=== PATIENT | female | born 1945 | race Caucasian/White ===

== ENCOUNTER 2016-05-01 17:23 | Emergency (ER) | payer MEDICARE ==
[2016-05-01 17:45] VITALS: TEMP 98.6; BMI 21.6
--- NOTE | 2016-05-01 18:16 | ED PDOC ---
Arrival/HPI <Maksim rBand DO - Last Filed: 05/01/16 19:10> - History of Present Illness Time/Duration: Prior to Arrival, < week Symptom Onset: Gradual Symptom Course: Intermittent <Raymond Gallardo - Last Filed: 05/01/16 20:32> - General Chief Complaint: Palpitations Time Seen by Provider: 05/01/16 17:48 - History of Present Illness Narrative History of Present Illness (Text): 05/01/16 18:02 This is a 71 year old female with a PMH notable for HTN and breast Ca presenting to the ED with complaint of palpitations and hearing "boom boom" in her ears. The patient states that she had a hearing evaluation recently that returned normal results. The patient states that she gets palpitation then hears the "boom boom" in her ear. She reports this sensation since Tuesday. The patient reports left sided shoulder pain since last night as well. The patient denies fever, chills, headache, chest pain, shortness of breath, diaphoresis, and changes in bowel/bladder. PMH: Breast cancer, HTN Surg: Breast surg (13 years ago) Allergy: Aspirin Soc: Denies Tobacco/Illicit Drugs, occasional EtOH (Raymond Gallardo) Past Medical History <Maksim Brand DO - Last Filed: 05/01/16 19:10> - Provider Review Nursing Documentation Reviewed: Yes - Travel History Have you recently traveled outside [place] w/in the past 3 mons?: No - Infectious Disease Hx of Infectious Diseases: None - Reproductive Menopause: Yes - Cardiac Hx Hypertension: Yes - Pulmonary Hx Respiratory Disorders: No - Neurological Hx Neurological Disorder: No - HEENT Other/Comment: Pt reports "Boom Boom" sound in both ears x 2 weeks - Renal Hx Renal Disorder: No - Endocrine/Metabolic Hx Endocrine Disorders: No - Hematological/Oncological Hx Blood Disorders: No - Integumentary Hx Dermatological Disorder: No - Musculoskeletal/Rheumatological Hx Musculoskeletal Disorders: No - Gastrointestinal Hx Gastrointestinal Disorders: No - Genitourinary/Gynecological Hx Genitourinary Disorders: No - Psychiatric Hx Psychophysiologic Disorder: No Hx Substance Use: No - Anesthesia Hx Anesthesia: No Hx Anesthesia Reactions: No Hx Malignant Hyperthermia: No <Raymond Gallardo - Last Filed: 05/01/16 20:32> - Patient History Narrative Patient History: HTN, breast ca (Raymond Gallardo) Family/Social History - Physician Review Nursing Documentation Reviewed: Yes Family/Social History: No Known Family HX Smoking Status: Never Smoked Hx Alcohol Use: Yes Frequency of alcohol use: Socially Hx Substance Use: No <Raymond Gallardo - Last Filed: 05/01/16 20:32> Allergies/Home Meds <Maksim Brand DO - Last Filed: 05/01/16 19:10> <Raymond Gallardo - Last Filed: 05/01/16 20:32> Allergies/Adverse Reactions: Allergies aspirin Adverse Reaction (Verified 05/01/16 17:30) NAUSEA Home Medications: Home Meds Medication Instructions Recorded Confirmed hydroCHLOROthiazide [Hydrodiuril] 25 mg PO DAILY 05/01/16 05/01/16 Review of Systems - Physician Review All systems were reviewed & negative as marked: Yes - Review of Systems Constitutional: absent: Fatigue Eyes: absent: Vision Changes ENT: absent: Hearing Changes Respiratory: absent: SOB, Cough Cardiovascular: Palpitations. absent: Chest Pain, CAMPUZANO, Syncope Gastrointestinal: absent: Abdominal Pain, Nausea, Vomiting Genitourinary Female: absent: Dysuria, Frequency Musculoskeletal: Neck Pain. absent: Arthralgias, Back Pain Skin: absent: Rash Neurological: absent: Headache, Dizziness Endocrine: absent: Diaphoresis <Raymond Gallardo - Last Filed: 05/01/16 20:32> Physical Exam Vital Signs Reviewed: Yes Temperature: Afebrile Blood Pressure: Normal Pulse: Regular Respiratory Rate: Normal Appearance: Positive for: Well-Appearing, Non-Toxic, Comfortable Pain Distress: None Mental Status: Positive for: Alert and Oriented X 3 - Systems Exam Head: Present: Atraumatic, Normocephalic Pupils: Present: PERRL Extroacular Muscles: Present: EOMI Conjunctiva: Present: Normal Ears: Present: Normal, NORMAL TM, Normal Canal. No: Erythema, TM Bulging, Fluid , TM Perf Mouth: Present: Moist Mucous Membranes Pharnyx: Present: Normal. No: ERYTHEMA Neck: Present: Normal Range of Motion Respiratory/Chest: Present: Clear to Auscultation, Good Air Exchange. No: Respiratory Distress, Accessory Muscle Use Cardiovascular: Present: Normal S1, S2, Bradycardic. No: Regular Rate and Rhythm, Murmurs Abdomen: Present: Normal Bowel Sounds. No: Tenderness, Distention, Peritoneal Signs Upper Extremity: Present: Normal Inspection. No: Cyanosis, Edema Lower Extremity: Present: Normal Inspection. No: Edema Neurological: Present: GCS=15, CN II-XII Intact, Speech Normal Skin: Present: Warm, Dry, Normal Color. No: Rashes Psychiatric: Present: Alert, Oriented x 3 <Raymond Gallardo - Last Filed: 05/01/16 20:32> Vital Signs Temp Pulse Resp BP Pulse Ox 05/01/16 19:20 56 L 16 171/90 H 99 05/01/16 17:46 98.6 F 63 18 174/95 H 97 05/01/16 17:33 98.6 F 63 16 174/95 H 100 Medical Decision Making <Maksim Brand DO - Last Filed: 05/01/16 19:10> Re-evaluation Time: 20:00 - Lab Interpretations Interpretation: Abnormal lab values (Hypokalemia. All other CMP and CBC values within normal limits) - EKG Interpretation Interpreted by ED Physician: Yes Type: 12 lead EKG <Raymond Gallardo - Last Filed: 05/01/16 20:32> ED Course and Treatment: 05/01/16 19:11 71 year old complaining of palpations and hearing a thumping sound in her ears. In agreement with resident note, which includes further HPI details. Patient was seen and evaluated with resident, came up with plan and treatment together. Physical exam was unremarkable. (Maksim Brand DO) 05/01/16 18:25 Impression: This is a 71 year old female with a PMH notable for HTN and breast Ca presenting to the ED with complaint of palpitations and hearing "boom boom" in her ears. The "boom boom" may possibly be her heart beat. The patient is in no acute distress. Bedside EKG reveals no abnormalities. Differential: Palpitations HTN Anxiety Cardiac Ischemia Plan: Cardiac Work-up: EKG, BNP, Troponin, CK CBC, CMP, Mag, Phos, TSH Prior Visits: Progress Note: Patient seen and examined at the bedside. No acute distress. Patient asymptomatic presently. EKG negative for acute ST or T wave changes. The patient will undergo cardiac workup to rule out cardiac pathology. 05/01/16 20:28 Patient re-examined. Asymptomatic currently. Laboratory revealed slightly low potassium. K-Dur 20meq ordered. Discharge plan discussed with family. Family was instructed to follow up with PMD for further evaluation if symptoms persist. The patient is agreeable for discharge. The patient is medically safe for discharge home. (Raymond Gallardo) - Lab Interpretations Lab Results: 05/01/16 19:25 05/01/16 19:25 Lab Results 05/01/16 19:25: WBC 5.9, RBC 4.68, Hgb 15.1, Hct 44.4, MCV 94.9, MCH 32.3, MCHC 34.0, RDW 13.5, Plt Count 230, MPV 12.8 H, Gran % 60.3, Lymph % (Auto) 27.3, Addison % (Auto) 9.3 H, Eos % (Auto) 2.4, Baso % (Auto) 0.7, Gran # 3.58, Lymph # 1.6, Addison # 0.6, Eos # 0.1, Baso # 0.04, Sodium 141, Potassium 3.4 L, Chloride 98, Carbon Dioxide 32, Anion Gap 14, BUN 13, Creatinine 0.6, Est GFR ( Amer) > 60, Est GFR (Non-Af Amer) > 60, Random Glucose 103, Calcium 9.7, Phosphorus 3.3, Magnesium 2.1, Total Bilirubin 0.7, AST 39, ALT 31, Alkaline Phosphatase 135 H, Total Creatine Kinase 77, Troponin I < 0.01, NT-Pro-B Natriuret Pep 191, Total Protein 8.8 H, Albumin 4.4, Globulin 4.4, Albumin/ Globulin Ratio 1.0 L - EKG Interpretation EKG Interpretation (Text): 05/01/16 18:[address] or T wave changes. 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 / has examined the patient and agrees with the treatment plan. - Scribe Statement The provider has reviewed the documentation as recorded by the Scribe <Passafaro DO,Maksim - Last Filed: 05/01/16 19:10> <Raymond Gallardo - Last Filed: 05/01/16 20:32> - Scribe Statement Latanya Louise All medical record entries made by the Scribe were at my direction and personally dictated by me. I have reviewed the chart and agree that the record accurately reflects my personal performance of the history, physical exam, medical decision making, and the department course for this patient. I have also personally directed, reviewed, and agree with the discharge instructions and disposition. (Maksim Brand DO) Disposition/Present on Arrival <Maksim Brand DO - Last Filed: 05/01/16 19:10> - Present on Arrival Any Indicators Present on Arrival: No History of DVT/PE: No History of Uncontrolled Diabetes: No Urinary Catheter: No History of Decub. Ulcer: No History Surgical Site Infection Following: None - Disposition Have Diagnosis and Disposition been Completed?: Yes Disposition Time: 20:00 Patient Plan: Discharge <Raymond Gallardo - Last Filed: 05/01/16 20:32> - Disposition Diagnosis: Heart palpitations Disposition: HOME/ ROUTINE Patient Problems: Current Active Problems Problem Status Diagnosed Heart palpitations Acute Condition: GOOD Discharge Instructions (ExitCare): Palpitations (ED) Print Language: CHINESE Additional Instructions: 1.) Follow up with PMD 2.) Maintain adequate hydration 3.) If symptoms return, please return to the ED for evaluation Referrals: Radha Muhammad MD [Primary Care Provider] - Follow up with primary
[2016-05-01 19:37] LABS: ADD MANUAL DIFF? NO
[2016-05-01 19:42] LABS: BASO # 0.04 K/mm3 (0.0-2.0); BASO % 0.7 % (0.0-3.0); EOS # 0.1 (0.0-0.7); EOS % 2.4 % (1.5-5.0); GRAN # 3.58 (1.4-6.5); GRAN % 60.3 % (50.0-68.0); HEMATOCRIT 44.4 % (36.0-48.0); LYMPH # 1.6 (1.2-3.4); LYMPH % 27.3 % (22.0-35.0); MEAN CELL VOLUME 94.9 fL (80.0-105.0); MEAN CORPUSCULAR HEMOGLOBIN 32.3 pg (25.0-35.0); MEAN PLATELET VOLUME 12.8 fl (7.0-11.0); MONO # 0.6 (0.1-0.6); MONO % 9.3 % (1.0-6.0); PLATELET COUNT 230 10^3/uL (120.0-450.0); RED CELL DISTRIBUTION WIDTH 13.5 % (11.5-14.5); WHITE BLOOD COUNT 5.9 10^3/ul (4.5-11.0)
[2016-05-01 19:59] LABS: ALKALINE PHOSPHATASE 135 U/L (38-133); ALT/SGPT 31 U/L (7-56); AST/SGOT 39 U/L (15-39); BILIRUBIN,TOTAL 0.7 mg/dL (0.2-1.3); BLOOD UREA NITROGEN 13 mg/dL (7-21); CALCIUM 9.7 mg/dL (8.4-10.5); CARBON DIOXIDE 32 mmol/L (21-33); CHLORIDE 98 mmol/L (98-107); GFR AFRICAN-AMERICAN > 60; GLUCOSE,RANDOM 103 mg/dL (70-110); MAGNESIUM 2.1 mg/dL (1.7-2.2); PHOSPHOROUS 3.3 mg/dL (2.5-4.5); POTASSIUM 3.4 mmol/L (3.6-5.0); SODIUM 141 mmol/L (132-148); TOTAL PROTEIN 8.8 g/dL (5.8-8.3)
[2016-05-01 20:17] LABS: TROPONIN I < 0.01 ng/mL
[2016-05-01] MEDS ORDERED: Potassium Chloride 20 mEq ER Tab PO STA (20:19)
[2016-05-01 21:28] VITALS: BP 160/95; PULSE 62; RESP 18; O2SAT 97
--- NOTE | 2016-05-02 09:52 | CARD ---
APPROVED REPORT EKG Measurement Heart [id number] <Conclusion> Sinus bradycardia NSSTW changes Prolonged QTc
== END 2016-05-01 21:10 | disposition home or self-care (01) ==
LOC: ED 17:23
DX: R00.2 Palpitations (principal); I10 Essential (primary) hypertension